=== PATIENT | female | born 1965 | race Caucasian/White ===

== ENCOUNTER 2024-02-10 22:55 | Emergency (ER) | payer BC ==
[~2024-02-10] VITALS: Ht 162.6 cm; Wt 65.0 kg
[2024-02-10 23:00] VITALS: BP 110/67; PULSE 72; RESP 18; TEMP 98.2; O2SAT 97
== END 2024-02-11 09:32 | disposition left against medical advice (07) ==
LOC: ER 22:55
DX: M79.605 Pain in left leg (principal); Z53.21 Procedure and treatment not carried out due to patient leaving prior to being seen by health care provider